=== PATIENT | female | born 1970 | race Caucasian/White ===

== ENCOUNTER 2017-11-08 18:51 | Emergency (ER) | payer BC ==
[2017-11-08] MEDS ORDERED: Ketorolac 60 MG/2 ML SDV IM ONE (19:16)
--- NOTE | 2017-11-08 19:19 | EDM.PDOC ---
ED HPI GENERAL MEDICAL PROBLEM - General Chief Complaint: Back Pain or Injury Stated Complaint: LOW BACK PAIN Time Seen by Provider: 11/08/17 19:05 Source of Information: Reports: Patient History Limitations: Reports: No Limitations - History of Present Illness INITIAL COMMENTS - FREE TEXT/NARRATIVE: HISTORY AND PHYSICAL: History of present illness: [Is to the emergency room complaining of low back pain. Reports a history of chronic low back pain for the past several years for which she followed up with Dr. Stacy. Yesterday her low back pain intensified, and is making walking difficult for her. She was evaluated by Dr. Avila yesterday and was given a cortisone injection, which hasn't helped her at all. She also started diclofenac ER 100mg today. This has been prescribed for once a day dosing. Pain is in her left low back and is not radiating. No pain in her thigh knee or ankle. No numbness tingling or weakness. No fever or chills. No difficulty urinating or having bowel movements. No episodes of numbness. Has no other complaints or concerns today. Has been taking Tylenol at home on and off without improvement.] Review of systems: As per history of present illness and below otherwise all systems reviewed and negative. Past medical history: As per history of present illness and as reviewed below otherwise noncontributory. Surgical history: As per history of present illness and as reviewed below otherwise noncontributory. Social history: No reported history of drug or alcohol abuse. Family history: As per history of present illness and as reviewed below otherwise noncontributory. Physical exam: HEENT: Atraumatic, normocephalic. Lungs: Clear to auscultation, breath sounds equal bilaterally. Heart: S1S2, regular, negative for clicks, rubs, or JVD. Back: No rashes or suspicious appearing lesions. She is tender over the left SI joint. Decreased range of motion due to pain with extension of low back, and right lateral flexion. Negative straight leg raise Extremities: Atraumatic, negative for cords or calf pain. no swelling or cyanosis to feet or lower legs. Patellar reflexes are 2+ and equal bilaterally. Neurovascular unremarkable. Neuro: Awake, alert, oriented.Motor and sensory unremarkable throughout. Exam nonfocal. Therapeutics: [Norflex 60mg IM, Toradol 60mg IM] Impression: [low back pain] Plan: [Discussed with patient that improvement in her pain will take time. In the meantime, alternate heat and ice, continue Tylenol. Rx's written for patient: cyclobenzaprine 10mg (#30) si po q 8 hours prn spasm 0 RF's; diclofenac sodium 50mg (#30) si po TID 0 RF's, hydrocodone 5/325mg (#10) si po q 8 hours prn pain 0 RF's. hold diclofenac 100 mg tablets for now. Follow-up with PCP next week. She is in agreement with today's plan. All questions are answered and concerns are addressed. ] Definitive disposition and diagnosis as appropriate pending reevaluation and review of above. back Pain Score (Numeric/FACES): 10 - Related Data Allergies Allergy/AdvReac Type Severity Reaction Status Date / Time No Known Allergies Allergy Verified 09/19/17 13:28 ED ROS GENERAL - Review of Systems Review Of Systems: ROS reveals no pertinent complaints other than HPI. ED EXAM,LOWER BACK PAIN/INJURY - Physical Exam Exam: See Below Course - Vital Signs Last Recorded V/S: Last Vital Signs Temp 97.5 F 11/08/17 19:05 Pulse 106 H 11/08/17 19:05 Resp 24 H 11/08/17 19:05 BP 146/89 H 11/08/17 19:05 Pulse Ox - Orders/Labs/Meds Meds: Medications Discontinued Medications Generic Name Dose Route Start Last Admin Trade Name Freq PRN Reason Stop Dose Admin Ketorolac Tromethamine 60 mg 11/08/17 19:16 11/08/17 19:28 Toradol IM 11/08/17 19:17 60 mg ONETIME ONE Administration Orphenadrine Citrate 60 mg 11/08/17 19:15 11/08/17 19:28 Norflex IM 60 mg Q12H [facility] Administration Departure - Departure Time of Disposition: 20:00 Disposition: Home, Self-Care 01 Condition: Good Clinical Impression: Low back pain - Discharge Information Instructions: Back Pain, Adult, [id number] Referrals: PCP,None [Primary Care Provider] - Forms: ED Department Discharge Additional Instructions: The following information is given to patients seen in the emergency department who are being discharged to home. This information is to outline your options for follow-up care. We provide all patients seen in our emergency department with a follow-up referral. The need for follow-up, as well as the timing and circumstances, are variable depending upon the specifics of your emergency department visit. If you don't have a primary care physician on staff, we will provide you with a referral. We always advise you to contact your personal physician following an emergency department visit to inform them of the circumstance of the visit and for follow-up with them and/or the need for any referrals to a consulting specialist. The emergency department will also refer you to a specialist when appropriate. This referral assures that you have the opportunity for follow-up care with a specialist. All of these measure are taken in an effort to provide you with optimal care, which includes your follow-up. Under all circumstances we always encourage you to contact your private physician who remains a resource for coordinating your care. When calling for follow-up care, please make the office aware that this follow-up is from your recent emergency room visit. If for any reason you are refused follow-up, please contact the [facility] emergency department at and asked to speak to the emergency department charge nurse. [facility] [address] [place] [id number] Follow-up with your primary care provider or at the clinic listed above in 48- 72 hours. Take medications as prescribed. Return to ER as needed as discussed.
== END 2017-11-08 20:05 | disposition home or self-care (01) ==
LOC: MW.ED 18:51
DX: G89.29 Other chronic pain (principal); M54.5 Low back pain
CPT/HCPCS: 96372; 99283; J1885; J2360